=== PATIENT | female | born 1960 | race Caucasian/White ===

== ENCOUNTER 2021-04-12 10:47 | Emergency (ER) | payer SELFPAY ==
[2021-04-12 10:59] VITALS: BP 126/62; PULSE 87; RESP 23; TEMP 37.2; O2SAT 95
--- NOTE | 2021-04-12 11:00 | RT.EKG_ITS ---
APPROVED REPORT Exam: Resting ECG Reason for Exam: weakness, vomiting Patient Location: E HR:82 bpm ECG Measurements Heart Rate 82 AXIS UT 149 P 6 QRSd 76 QRS -19 QT 358 T 2 QTc 417 Conclusion Sinus rhythm...normal P axis, V-rate 60- 99 Low voltage, precordial leads...precordial leads <1.0mV
[2021-04-12 11:08] VITALS: RESP 26
[2021-04-12 11:21] VITALS: BP 109/62; PULSE 82; PULSE 84; RESP 25; O2SAT 95
[2021-04-12] MEDS: Ondansetron 4 MG/2 ML VIAL IVP (11:35)
[2021-04-12] MEDS: Normal Saline 1,000 ML 1000 ML IV (11:35)
[2021-04-12] MEDS: Ketorolac 15 MG/ML VIAL IVP (11:37)
[2021-04-12 11:38] LABS: Abs Immature Grans 0.01 10^3/uL (0.0-0.06); Absolute Basophil Count 0.01 10^3/uL (0.0-0.2); Absolute Lymphocyte Count 1.52 10^3/uL (1.2-3.4); Absolute Monocyte Count 0.43 10^3/uL (0.1-0.8); Basophils % 0.3; HCT 47.5 % (36.0-46.0); HGB 15.7 g/dL (11.2-15.7); Immature Grans % 0.3; Lymphocytes % 39.3; MCH 28.9 pg (27.0-33.0); MCHC 33.1 % (32.0-36.0); MCV 87.5 fL (80-95); MPV 11.1 fL (8.0-11.0); Monocytes % 11.1; Nucleated RBC 0 %; Platelet Count 151 10^3/uL (130-400); RBC 5.43 10^6/uL (3.93-5.22); RDW 12.2 % (11.7-14.6); RDW-SD 39.3 fL; WBC 3.87 10^3/uL (4.4-10.8)
[2021-04-12 11:54] LABS: ALT 39 U/L (14-59); AST 37 U/L (15-37); Albumin 3.7 g/dL (3.4-5.0); Alkaline Phosphatase 76 U/L (46-116); Anion Gap 15.4 mmol/L (3-11); BUN 21 mg/dL (7-18); Bilirubin, Total 0.5 mg/dL (0.2-1.0); CO2 21.6 mmol/L (21.0-32.0); CREATININE 1.1 mg/dL (0.55-1.02); Calcium 8.3 mg/dL (8.5-10.1); Chloride 103 mmol/L (98-107); Estimated GFR 50.67 (mL/min/1.73m2); Glucose 124 mg/dL (74-106); Potassium 3.6 mmol/L (3.5-5.1); Sodium 140 mmol/L (136-145); Total Protein 7.3 g/dL (6.4-8.2); Troponin I < 50 ng/L (<or=60)
[2021-04-12 12:07] VITALS: TEMP 37
[2021-04-12 12:59] VITALS: BP 106/63; PULSE 76; RESP 14; TEMP 37; O2SAT 95
[2021-04-12] MEDS: Normal Saline 500 ML 1000 ML IV (13:00)
--- NOTE | 2021-04-12 13:25 | ED.GENADUL_ITS ---
Discharge Plan Disposition Patient Disposition: HOME Condition: Stable Discharge Details Clinical Impression: Nausea & vomiting, COVID-19 Primary Care Provider: None,None ED Provider: Trinity Lowe Home Meds and New Rx's Prescriptions: New ondansetron HCl [Zofran] 4 mg tablet 4 mg PO Q8H PRNQty: 10 RF: 0 Discharge Instructions Instructions: Acute Nausea and Vomiting (ED), Viral Syndrome (ED), Instructions for Self Monitoring Oxygen Saturation Additional Instructions: Please follow-up with your primary care physician, continue to isolate for 10 days after onset of symptoms Use a pulse oximeter, keep it in place for at least a minute after you have applied it to your finger Take the Zofran as needed for nausea and vomiting Stay away from food until your nausea has improved Gatorade, water, bland diet as tolerated Should you develop chest pain, worsening shortness of breath, or with any new or worsening complaints return immediately Ibuprofen 600 mg every 8 hours with food Tylenol 650 mg every 4-6 hours Return with worsening shortness of breath, chest pain, uncontrolled vomiting, or with any new or Stand Alone Forms: POSITIVE COVID-19/TO BE TESTED Referrals: Fantasma Gaytan [ NON-[facility] STAFF PHYSICIAN] - Discharge Data Discharge Date/Time-TO BE ENTERED AT DEPARTURE: 04/12/21 13:44 Medical Decision Making pt appears improved post antiemetics and fluid hydration labs likely consistent with acute covid infection, lungs cta, no hypoxia/respiratory distress tolerates po challenge discussed pulse oximetry and return precautions with patient/supplied with pulse oximeter for home pt discharged home with return precautions discussed, appearing symptomatically improved will complete isolation for 10 days and f/u with pcp at that time zofran rx for home ekg without acute abnl, specifically not qtc prolongation Medical Records Medical records reviewed: Yes I reviewed the patient's medical records. Lab Data Lab results reviewed: Yes I reviewed the patient's lab results. HPI General Mode of arrival: ambulatory . Date/Time Provider Initiated Documentation: 04/12/21 10:49 . Limitations to Documentation: no limitations . Information obtained by: patient . HPI Narrative: this otherwise healthy 61-year-old female presents with recent diagnosis of Covid with symptoms starting on and Covid test returning on Saturday of this last week. She complains of myalgia/cramping which are generalized, vomiting, lightheadedness. She denies any chest pain or shortness of breath. She does report cough. She denies any hemoptysis, calf pain or swelling. She denies any blood in vomitus. She denies any diarrhea. She does report fevers at home which are subjective in nature. She thinks she has vomited approximately 5-6 times since onset of symptoms. She has not attempted any [id number] medications. Related Data Home Medications Medication Instructions Recorded Confirmed ondansetron HCl [Zofran] 4 mg PO Q8H PRN #10 tab 04/12/21 Previous Rx's Medication Instructions Recorded ondansetron HCl [Zofran] 4 mg PO Q8H PRN #10 tab 04/12/21 Allergies Allergy/AdvReac Type Severity Reaction Status Date / Time No Known Allergies Allergy Unverified 04/12/21 11:06 General Stated Complaint: GenMedical NALINI: 3 Review of Systems All systems reviewed & are unremarkable except as noted in HPI and below PFSH All Active Problems (Updated 04/12/21 @ 13:30 by BRYAN Luther) Nausea & vomiting (Acute) COVID-19 (Acute) Family History Mother Diabetes Asthma Father Lung cancer Social History Smoking/Tobacco Use Status: Never Smoking risk assessment performed?: Yes Substance use type: does not use Exam Const General: cooperative and comfortable HENMT Mouth: oral mucosae normal Throat: uvula midline Eyes Sclera: sclerae normal Pupils: PERRL Neck Other: no meningismus Resp Effort & Inspection: normal respiratory effort Auscultation: clear to auscultation bilaterally Cardio Rate: regular rate Rhythm: regular rhythm GI Other: non tender, no distension, no pulsatile mass, BS intact Skin Other: pale Neuro General: patient alert and patient oriented x3 Gait: normal gait Sensory Exam: no sensory deficits noted Extrem Other: no calf swelling or tenderness Course Vital Signs Vital signs: Vital Signs Temperature 37.2 C 04/12/21 10:59 Pulse 87 04/12/21 10:59 Respiratory Rate 23 04/12/21 10:59 Blood Pressure 126/62 04/12/21 10:59 Pulse Oximetry 95 04/12/21 10:59 Temperature 37 C 04/12/21 12:59 Temperature Source Skin 04/12/21 12:59 Pulse 76 12/29/21 12:59 Pulse 82 04/12/21 11:21 Respiratory Rate 14 04/12/21 12:59 Respiratory Effort 04/12/21 10:59 Blood Pressure 106/63 04/12/21 12:59 Blood Pressure Mean 74 04/12/21 11:21 Blood Pressure Position Supine 04/12/21 10:59 Pulse Oximetry 95 04/12/21 12:59 Oxygen Delivery Method Room Air 04/12/21 12:59 Oxygen Flow Rate 0 04/12/21 12:59 Pain Level 3 04/12/21 12:59 Lab/Test Results Lab/Test Results: Laboratory Tests Range/Units 04/12/21 04/12/21 11:15 11:15 WBC (4.4-10.8) 10^3/uL 3.87 L RBC (3.93-5.22) 10^6/uL 5.43 H Hgb (11.2-15.7) g/dL 15.7 Hct (36.0-46.0) % 47.5 H MCV (80-95) fL 87.5 MCH (27.0-33.0) pg 28.9 MCHC (32.0-36.0) % 33.1 RDW (11.7-14.6) % 12.2 Plt Count (130-400) 10^3/uL 151 MPV (8.0-11.0) fL 11.1 H Immature Gran % 0.3 Neutrophils % 49.0 Lymphocytes % 39.3 Monocytes % 11.1 Eosinophils % 0.0 Basophils % 0.3 Nucleated RBC % % 0 Absolute Neutrophils (1.2-6.7) 10^3/uL 1.90 Absolute Lymphocytes (1.2-3.4) 10^3/uL 1.52 Absolute Monocytes (0.1-0.8) 10^3/uL 0.43 Absolute Eosinophils (0.0-0.7) 10^3/uL 0.00 Absolute Basophils (0.0-0.2) 10^3/uL 0.01 Sodium (136-145) mmol/L 140 Potassium (3.5-5.1) mmol/L 3.6 Chloride (98-107) mmol/L 103 Carbon Dioxide (21.0-32.0) mmol/L 21.6 Anion Gap (3-11) mmol/L 15.4 H BUN (7-18) mg/dL 21 H Creatinine (0.55-1.02) mg/dL 1.1 H Estimated GFR/1.73 m2 (mL/min/1.73m2) 50.67 Glucose (74-106) mg/dL 124 H Calcium (8.5-10.1) mg/dL 8.3 L Magnesium (1.8-2.4) mg/dL 2.0 Total Bilirubin (0.2-1.0) mg/dL 0.5 AST (15-37) U/L 37 ALT (14-59) U/L 39 Alkaline Phosphatase (46-116) U/L 76 Troponin I (<or=60) ng/L < 50 Total Protein (6.4-8.2) g/dL 7.3 Albumin (3.4-5.0) g/dL 3.7
== END 2021-04-12 13:44 | disposition home or self-care (01) ==
LOC: ER 13:43
PROVIDERS: Emergency Provider Physician Assistant
DX: U07.1 COVID-19 (principal); R11.2 Nausea with vomiting, unspecified; R53.1 Weakness
CPT/HCPCS: 36415; 80053; 93005; 96361; 96374; 96375; 99284; 83735; 84484; 85025; 93010; J1885; J2405